=== PATIENT | female | born 1950 | race Caucasian/White ===

== ENCOUNTER 2019-05-31 12:25 | Observation (INO) ==
[2019-05-31] MEDS ORDERED: Ondansetron 4 MG/2 ML VIAL IVP ONE (12:38)
[2019-05-31] MEDS ORDERED: 0.9 % Sodium Chloride 1,000 ML IVC ONE (12:38)
[2019-05-31 13:08] LABS: Basophils # 0.1 K/mcL (0.0-0.2); Basophils % 0.6 %; Eosinophils # 0.3 K/mcL (0.0-0.6); Eosinophils % 3.3 %; Hematocrit 37.7 % (35.3-44.9); Hemoglobin 11.7 g/dL (11.5-15.4); Immature Granulocytes % 0.6 % (0-4); Lymphocytes # 2.5 K/mcL (0.6-4.6); Lymphocytes % 28.3 %; Mean Corpuscular Hemoglobin 28.5 pg (28.0-33.3); Mean Platelet Volume 11.6 fL (9.4-12.4); Monocytes # 0.6 K/mcL (0.0-1.3); Monocytes % 6.6 %; Neutrophils # 5.4 K/mcL (1.6-8.9); Platelet Count 249 K/mcL (140-400); Red Cell Distribution Width 18.2 % (11.5-14.5); Segmented Neutrophils % 60.6 %
[2019-05-31 13:26] LABS: Alanine Aminotransferase 18 Units/L (7-52); Albumin 3.1 g/dL (3.5-5.7); Albumin/Globulin Ratio 0.9 (1.1-2.2); Alkaline Phosphatase 91 Units/L (34-104); Amylase 16 Units/L (29-103); Aspartate Amino Transferase 31 Units/L (13-39); BUN/Creatinine Ratio 34 (6-26); Bilirubin,Direct 0.1 mg/dL (0.0-0.2); Bilirubin,Indirect 0.1 mg/dL (0.0-1.0); Bilirubin,Total 0.2 mg/dL (0.3-1.0); Blood Urea Nitrogen 34 mg/dL (8-23); Calcium 7.9 mg/dL (8.6-10.3); Carbon Dioxide 18 mEq/L (23-29); Chloride 109 mEq/L (98-107); Globulin 3.5 g/dL (2.4-3.5); Glucose 129 mg/dL (70-105); Lipase 38 Units/L (11-82); Osmolality,Calculated 295 (280-300); Sodium 138 mEq/L (136-145); Total Protein 6.6 g/dL (6.4-8.9); eGFR For African Americans > 60 (> 60); eGFR For Non-African Americans 55 (> 60)
[2019-05-31] MEDS: 0.9 % Sodium Chloride 1,000 ML IVC SCH ×4 (15:03→23:41)
[2019-05-31] MEDS ORDERED: Naloxone 0.4 MG/ML INJ IVP PRN (18:06)
[2019-05-31] MEDS ORDERED: Ondansetron 4 MG/2 ML VIAL IVP PRN (18:06)
[2019-05-31] MEDS ORDERED: *HR* Dextrose 50 % in Water (Vial) 50 ML VIAL IVP PRN (18:25)
[2019-05-31] MEDS ORDERED: Dextrose Gel 15 GM/37.5 ML TUBE PO PRN ×2 (18:25)
[2019-05-31] MEDS ORDERED: D5% in Water 1,000 ML IVC PRN (18:25)
[2019-05-31] MEDS ORDERED: Artificial Tears SOLN 15 ML BOTTLE BOTH EYES SCH (19:00)
[2019-05-31] MEDS: Bisacodyl 10 MG RECTAL SUPPOSITORY RC SCH (21:18)
[2019-05-31] MEDS: Sennosides/Docusate Sodium TABLET PO SCH (21:20)
[2019-05-31] MEDS: Insulin LISPRO 300 UNITS/3 ML VIAL SQ SCH (23:34)
[2019-06-01 05:36] LABS: Hemoglobin 10.7 g/dL (11.5-15.4); Mean Corpuscular HGB Conc 30.6 g/dL (31.6-35.5); Mean Corpuscular Hemoglobin 27.8 pg (28.0-33.3); Mean Corpuscular Volume 90.9 fL (83.0-100.0); Mean Platelet Volume 11.8 fL (9.4-12.4); Platelet Count 240 K/mcL (140-400); Red Blood Count 3.85 M/mcL (3.82-4.97); Red Cell Distribution Width 18.3 % (11.5-14.5); White Blood Count 8.3 K/mcL (4.3-11.1)
[2019-06-01 05:59] LABS: BUN/Creatinine Ratio 45 (6-26); Blood Urea Nitrogen 33 mg/dL (8-23); Carbon Dioxide 19 mEq/L (23-29); Chloride 113 mEq/L (98-107); Glucose 105 mg/dL (70-105); Osmolality,Calculated 298 (280-300); Potassium 4.6 mEq/L (3.5-5.1); Sodium 140 mEq/L (136-145); eGFR For African Americans > 60 (> 60); eGFR For Non-African Americans > 60 (> 60)
[2019-06-01] MEDS: Insulin LISPRO 300 UNITS/3 ML VIAL SQ SCH ×2 (06:44→18:08)
[2019-06-01] MEDS: Sennosides/Docusate Sodium TABLET PO SCH (07:40)
[2019-06-01] MEDS: 0.9 % Sodium Chloride 1,000 ML IVC SCH (07:40)
[2019-06-01] MEDS: Bisacodyl 10 MG RECTAL SUPPOSITORY RC SCH (07:40)
[2019-06-01] MEDS: Pantoprazole 40 MG VIAL IVP SCH (15:00)
[2019-06-01] MEDS: Artificial Tears SOLN 15 ML BOTTLE BOTH EYES SCH (18:08)
[2019-06-01] MEDS ORDERED: QUEtiapine Fumarate 100 MG TABLET PO SCH (19:00)
[2019-06-02] MEDS: Venlafaxine XR (24 HR) 37.5 MG CAP.ER.24H PO SCH ×2 (00:55→06:41)
[2019-06-02] MEDS: Sennosides/Docusate Sodium TABLET PO SCH ×2 (00:57→09:29)
[2019-06-02] MEDS: Artificial Tears SOLN 15 ML BOTTLE BOTH EYES SCH ×2 (01:06→09:29)
[2019-06-02] MEDS: Baclofen 10 MG TABLET PO SCH ×3 (01:08→14:14)
[2019-06-02] MEDS: Gabapentin 300 MG CAPSULE PO SCH ×3 (01:08→14:14)
[2019-06-02] MEDS: Insulin LISPRO 300 UNITS/3 ML VIAL SQ SCH ×2 (01:23→08:03)
[2019-06-02 06:05] VITALS: BP 125/79
[2019-06-02 06:13] LABS: Hemoglobin 10.8 g/dL (11.5-15.4); Mean Corpuscular HGB Conc 30.9 g/dL (31.6-35.5); Mean Corpuscular Hemoglobin 27.8 pg (28.0-33.3); Mean Corpuscular Volume 90.2 fL (83.0-100.0); Mean Platelet Volume 11.6 fL (9.4-12.4); Platelet Count 255 K/mcL (140-400); Red Blood Count 3.88 M/mcL (3.82-4.97); Red Cell Distribution Width 18.3 % (11.5-14.5); White Blood Count 7.8 K/mcL (4.3-11.1)
[2019-06-02 06:40] LABS: BUN/Creatinine Ratio 49 (6-26); Blood Urea Nitrogen 25 mg/dL (8-23); Calcium 7.4 mg/dL (8.6-10.3); Carbon Dioxide 18 mEq/L (23-29); Chloride 111 mEq/L (98-107); Glucose 120 mg/dL (70-105); Osmolality,Calculated 292 (280-300); Potassium 4.5 mEq/L (3.5-5.1); Sodium 138 mEq/L (136-145); eGFR For African Americans > 60 (> 60); eGFR For Non-African Americans > 60 (> 60)
[2019-06-02] MEDS ORDERED: QUEtiapine Fumarate 25 MG TABLET PO SCH (07:00)
[2019-06-02] MEDS: 0.9 % Sodium Chloride 1,000 ML IVC SCH (07:16)
[2019-06-02] MEDS: Pantoprazole 40 MG VIAL IVP SCH (09:23)
[2019-06-02] MEDS: Bisacodyl 10 MG RECTAL SUPPOSITORY RC SCH (09:29)
[2019-06-02] MEDS ORDERED: Insulin LISPRO 300 UNITS/3 ML VIAL SQ SCH ×2 (11:30→21:00)
== END 2019-06-02 15:05 ==
LOC: EMEROOPIK 12:25 → INPPIK 12:25
PROVIDERS: ADMIT Family Medicine; ATTEND Family Medicine

== ENCOUNTER 2019-06-10 18:29 | Inpatient (IN) ==
[2019-06-10] MEDS ORDERED: 0.9 % Sodium Chloride 500 ML IVC ONE (18:40)
[2019-06-10] MEDS ORDERED: 0.9 % Sodium Chloride 1,000 ML IVC SCH (18:45)
[2019-06-10 18:47] LABS: Bilirubin,Urine Negative (Negative); Blood,Urine Small (Negative); Clarity,Urine Turbid (Clear); Color,Urine Yellow (Yellow); Glucose,Urine (UA) Normal (Normal); Ketones,Urine Trace mg/dL (Negative); Leukocyte Esterase,Urine Moderate (Negative); Nitrite,Urine Negative (Negative); PH,Urine 5.5 pH Units (5.0-8.0); Protein,Urine 30 mg/dL (Neg-Trace); Urobilinogen,Urine Normal (Normal)
[2019-06-10 18:59] LABS: Basophils % 0.2 %; Eosinophils # 0.2 K/mcL (0.0-0.6); Eosinophils % 2.6 %; Hematocrit 35.6 % (35.3-44.9); Hemoglobin 11.3 g/dL (11.5-15.4); Immature Granulocytes % 0.5 % (0-4); Lymphocytes # 2.4 K/mcL (0.6-4.6); Lymphocytes % 29.1 %; Mean Corpuscular HGB Conc 31.7 g/dL (31.6-35.5); Mean Corpuscular Hemoglobin 28.5 pg (28.0-33.3); Mean Corpuscular Volume 89.7 fL (83.0-100.0); Monocytes # 0.4 K/mcL (0.0-1.3); Monocytes % 4.9 %; Neutrophils # 5.1 K/mcL (1.6-8.9); Platelet Count 234 K/mcL (140-400); Red Blood Count 3.97 M/mcL (3.82-4.97); Red Cell Distribution Width 18.2 % (11.5-14.5); Segmented Neutrophils % 62.7 %; White Blood Count 8.1 K/mcL (4.3-11.1)
[2019-06-10 19:02] LABS: Bacteria,Urine Moderate per hpf (None-Few); Mucus,Urine Few per lpf (Few); WBC,Urine TNTC per hpf (0-3)
[2019-06-10 19:17] LABS: Alanine Aminotransferase 19 Units/L (7-52); Albumin 2.9 g/dL (3.5-5.7); Albumin/Globulin Ratio 0.9 (1.1-2.2); Alkaline Phosphatase 88 Units/L (34-104); Aspartate Amino Transferase 27 Units/L (13-39); BUN/Creatinine Ratio 27 (6-26); Bilirubin,Direct 0.1 mg/dL (0.0-0.2); Bilirubin,Indirect 0.2 mg/dL (0.0-1.0); Bilirubin,Total 0.3 mg/dL (0.3-1.0); Blood Urea Nitrogen 25 mg/dL (8-23); Carbon Dioxide 22 mEq/L (23-29); Chloride 101 mEq/L (98-107); Globulin 3.2 g/dL (2.4-3.5); Glucose 112 mg/dL (70-105); Osmolality,Calculated 285 (280-300); Potassium 5.2 mEq/L (3.5-5.1); Sodium 135 mEq/L (136-145); Total Protein 6.1 g/dL (6.4-8.9); eGFR For African Americans > 60 (> 60); eGFR For Non-African Americans > 60 (> 60)
[2019-06-10] MEDS ORDERED: levoFLOXacin 750 MG/150 ML 750 MG/150 ML BAG IVPB ONE (19:19)
[2019-06-10] MEDS ORDERED: *HR* Dextrose 50 % in Water (Vial) 50 ML VIAL IVP PRN (20:40)
[2019-06-10] MEDS ORDERED: D5% in Water 1,000 ML IVC PRN (20:40)
[2019-06-10] MEDS ORDERED: Dextrose Gel 15 GM/37.5 ML TUBE PO PRN ×2 (20:40)
[2019-06-10] MEDS ORDERED: Mag Hydrox/Al Hydrox/Simeth 30 ML UDC PO PRN (20:40)
[2019-06-10] MEDS ORDERED: Naloxone 0.4 MG/ML INJ IVP PRN (20:40)
[2019-06-10] MEDS ORDERED: MOM Conc 10 ML UD.LIQ PO PRN (20:40)
[2019-06-10] MEDS ORDERED: Ondansetron ODT 4 MG TAB.RAPDIS SL PRN (20:40)
[2019-06-11] MEDS: 0.9 % Sodium Chloride 1,000 ML IVC SCH ×3 (03:00→23:43)
[2019-06-11 06:37] LABS: Basophils % 0.4 %; Eosinophils # 0.3 K/mcL (0.0-0.6); Eosinophils % 3.7 %; Hematocrit 32.9 % (35.3-44.9); Hemoglobin 10.2 g/dL (11.5-15.4); Lymphocytes # 2.3 K/mcL (0.6-4.6); Lymphocytes % 31.1 %; Mean Corpuscular Hemoglobin 28.2 pg (28.0-33.3); Mean Corpuscular Volume 90.9 fL (83.0-100.0); Mean Platelet Volume 12.4 fL (9.4-12.4); Monocytes # 0.5 K/mcL (0.0-1.3); Monocytes % 6.8 %; Neutrophils # 4.2 K/mcL (1.6-8.9); Platelet Count 205 K/mcL (140-400); Red Blood Count 3.62 M/mcL (3.82-4.97); Red Cell Distribution Width 18.2 % (11.5-14.5); White Blood Count 7.3 K/mcL (4.3-11.1)
[2019-06-11 06:59] LABS: BUN/Creatinine Ratio 35 (6-26); Blood Urea Nitrogen 27 mg/dL (8-23); Calcium 7.4 mg/dL (8.6-10.3); Carbon Dioxide 20 mEq/L (23-29); Chloride 105 mEq/L (98-107); Glucose 128 mg/dL (70-105); Osmolality,Calculated 287 (280-300); Potassium 4.9 mEq/L (3.5-5.1); Sodium 135 mEq/L (136-145); eGFR For African Americans > 60 (> 60); eGFR For Non-African Americans > 60 (> 60)
[2019-06-11] MEDS ORDERED: 0.9 % Sodium Chloride 1,000 ML IV ONE (07:30)
[2019-06-11] MEDS: Magnesium Oxide 400 MG TABLET PO SCH (08:19)
[2019-06-11] MEDS: Insulin LISPRO 300 UNITS/3 ML VIAL SQ SCH ×3 (08:20→16:46)
[2019-06-11] MEDS: *HR* HYDROcodone/Acet 5/325 mg TABLET PO PRN (11:06)
[2019-06-11] MEDS ORDERED: Gabapentin 300 MG CAPSULE PO SCH (15:00)
[2019-06-11] MEDS ORDERED: Baclofen 10 MG TABLET PO SCH (15:00)
[2019-06-11] MEDS: levoFLOXacin 750 MG/150 ML 750 MG/150 ML BAG IVPB SCH (16:46)
[2019-06-11] MEDS ORDERED: QUEtiapine Fumarate 100 MG TABLET PO SCH (19:00)
[2019-06-11] MEDS ORDERED: Psyllium 1 PACKET POWD.PACK PO SCH (19:00)
[2019-06-11] MEDS ORDERED: VISINE TEARS DROPS 15 ML 1 DROP BOTTLE BOTH EYES SCH (19:00)
[2019-06-11] MEDS: QUEtiapine Fumarate 100 MG TABLET PO SCH (21:38)
[2019-06-11] MEDS: Gabapentin 300 MG CAPSULE PO SCH (21:38)
[2019-06-11] MEDS: Baclofen 10 MG TABLET PO SCH (21:39)
[2019-06-11] MEDS: Psyllium 1 PACKET POWD.PACK PO SCH (21:39)
[2019-06-11] MEDS: VISINE TEARS DROPS 15 ML 1 DROP BOTTLE BOTH EYES SCH (21:39)
[2019-06-12] MEDS: QUEtiapine Fumarate 100 MG TABLET PO SCH ×2 (08:09→20:21)
[2019-06-12] MEDS: Gabapentin 300 MG CAPSULE PO SCH ×3 (08:10→20:22)
[2019-06-12] MEDS: Baclofen 10 MG TABLET PO SCH ×3 (08:10→20:22)
[2019-06-12] MEDS: Magnesium Oxide 400 MG TABLET PO SCH (08:10)
[2019-06-12] MEDS: Psyllium 1 PACKET POWD.PACK PO SCH ×2 (08:11→20:22)
[2019-06-12] MEDS: VISINE TEARS DROPS 15 ML 1 DROP BOTTLE BOTH EYES SCH ×2 (08:19→20:28)
[2019-06-12] MEDS: Insulin LISPRO 300 UNITS/3 ML VIAL SQ SCH ×3 (08:20→16:10)
[2019-06-12 08:49] LABS: Basophils % 0.4 %; Eosinophils # 0.3 K/mcL (0.0-0.6); Eosinophils % 3.4 %; Hematocrit 31.5 % (35.3-44.9); Hemoglobin 10.1 g/dL (11.5-15.4); Immature Granulocytes % 1.1 % (0-4); Lymphocytes # 2.1 K/mcL (0.6-4.6); Lymphocytes % 28.9 %; Mean Corpuscular HGB Conc 32.1 g/dL (31.6-35.5); Mean Corpuscular Hemoglobin 28.8 pg (28.0-33.3); Mean Corpuscular Volume 89.7 fL (83.0-100.0); Mean Platelet Volume 11.9 fL (9.4-12.4); Monocytes # 0.5 K/mcL (0.0-1.3); Monocytes % 7.3 %; Neutrophils # 4.3 K/mcL (1.6-8.9); Platelet Count 214 K/mcL (140-400); Red Blood Count 3.51 M/mcL (3.82-4.97); Segmented Neutrophils % 58.9 %; White Blood Count 7.4 K/mcL (4.3-11.1)
[2019-06-12 09:04] LABS: BUN/Creatinine Ratio 32 (6-26); Blood Urea Nitrogen 20 mg/dL (8-23); Calcium 7.3 mg/dL (8.6-10.3); Carbon Dioxide 24 mEq/L (23-29); Chloride 106 mEq/L (98-107); Glucose 121 mg/dL (70-105); Osmolality,Calculated 288 (280-300); Potassium 4.9 mEq/L (3.5-5.1); Sodium 137 mEq/L (136-145); eGFR For African Americans > 60 (> 60); eGFR For Non-African Americans > 60 (> 60)
[2019-06-12] MEDS ORDERED: *HR* Enoxaparin 40 MG/0.4 ML SYRINGE SQ SCH (10:15)
[2019-06-12] MEDS: *HR* Enoxaparin 40 MG/0.4 ML SYRINGE SQ SCH (12:59)
[2019-06-12] MEDS: ceFAZolin 2,000 MG in 0.9 % Sodium Chloride 100 ML IVPB SCH ×2 (13:00→20:22)
[2019-06-12] MEDS: levoFLOXacin 750 MG/150 ML 750 MG/150 ML BAG IVPB SCH (17:04)
[2019-06-13] MEDS: ceFAZolin 2,000 MG in 0.9 % Sodium Chloride 100 ML IVPB SCH (05:11)
[2019-06-13] MEDS: *HR* Enoxaparin 40 MG/0.4 ML SYRINGE SQ SCH (05:11)
[2019-06-13] MEDS: QUEtiapine Fumarate 100 MG TABLET PO SCH ×2 (08:32→20:38)
[2019-06-13] MEDS: Psyllium 1 PACKET POWD.PACK PO SCH ×2 (08:32→20:38)
[2019-06-13] MEDS: Baclofen 10 MG TABLET PO SCH ×3 (08:32→20:38)
[2019-06-13] MEDS: Magnesium Oxide 400 MG TABLET PO SCH (08:32)
[2019-06-13] MEDS: Gabapentin 300 MG CAPSULE PO SCH ×3 (08:33→20:38)
[2019-06-13] MEDS: VISINE TEARS DROPS 15 ML 1 DROP BOTTLE BOTH EYES SCH ×2 (08:33→20:38)
[2019-06-13] MEDS: Insulin LISPRO 300 UNITS/3 ML VIAL SQ SCH ×3 (08:33→17:04)
[2019-06-13] MEDS: Ertapenem 1,000 MG in 0.9 % Sodium Chloride Mini Bag 100 ML IVPB SCH (13:54)
[2019-06-13] MEDS: *HR* Metformin 500 MG TABLET PO SCH (17:12)
[2019-06-14] MEDS: *HR* Enoxaparin 40 MG/0.4 ML SYRINGE SQ SCH (06:11)
[2019-06-14] MEDS: Gabapentin 300 MG CAPSULE PO SCH ×3 (08:52→19:55)
[2019-06-14] MEDS: Baclofen 10 MG TABLET PO SCH ×3 (08:52→19:55)
[2019-06-14] MEDS: Magnesium Oxide 400 MG TABLET PO SCH (08:52)
[2019-06-14] MEDS: QUEtiapine Fumarate 100 MG TABLET PO SCH ×2 (08:52→19:56)
[2019-06-14] MEDS: Psyllium 1 PACKET POWD.PACK PO SCH ×2 (08:52→19:55)
[2019-06-14] MEDS: Insulin LISPRO 300 UNITS/3 ML VIAL SQ SCH ×3 (08:56→16:23)
[2019-06-14] MEDS: *HR* Metformin 500 MG TABLET PO SCH ×2 (08:57→16:34)
[2019-06-14] MEDS: VISINE TEARS DROPS 15 ML 1 DROP BOTTLE BOTH EYES SCH ×2 (08:58→20:04)
[2019-06-14 09:24] LABS: Basophils # 0.1 K/mcL (0.0-0.2); Basophils % 0.7 %; Eosinophils # 0.3 K/mcL (0.0-0.6); Eosinophils % 3.8 %; Hematocrit 33.2 % (35.3-44.9); Hemoglobin 10.5 g/dL (11.5-15.4); Immature Granulocytes % 1.1 % (0-4); Lymphocytes % 27.5 %; Mean Corpuscular HGB Conc 31.6 g/dL (31.6-35.5); Mean Corpuscular Hemoglobin 28.2 pg (28.0-33.3); Mean Corpuscular Volume 89.2 fL (83.0-100.0); Mean Platelet Volume 11.7 fL (9.4-12.4); Monocytes # 0.4 K/mcL (0.0-1.3); Monocytes % 5.8 %; Neutrophils # 4.5 K/mcL (1.6-8.9); Platelet Count 195 K/mcL (140-400); Red Blood Count 3.72 M/mcL (3.82-4.97); Red Cell Distribution Width 18.2 % (11.5-14.5); Segmented Neutrophils % 61.1 %; White Blood Count 7.3 K/mcL (4.3-11.1)
[2019-06-14 09:38] LABS: BUN/Creatinine Ratio 25 (6-26); Blood Urea Nitrogen 13 mg/dL (8-23); Calcium 7.2 mg/dL (8.6-10.3); Carbon Dioxide 21 mEq/L (23-29); Chloride 106 mEq/L (98-107); Glucose 223 mg/dL (70-105); Osmolality,Calculated 289 (280-300); Potassium 4.4 mEq/L (3.5-5.1); Sodium 136 mEq/L (136-145); eGFR For African Americans > 60 (> 60); eGFR For Non-African Americans > 60 (> 60)
[2019-06-14] MEDS: Ertapenem 1,000 MG in 0.9 % Sodium Chloride Mini Bag 100 ML IVPB SCH (11:42)
[2019-06-14] MEDS ORDERED: Lidocaine 1% 20 ML MDV INFILT ONE (17:04)
[2019-06-15] MEDS: *HR* Enoxaparin 40 MG/0.4 ML SYRINGE SQ SCH (06:06)
[2019-06-15] MEDS: Insulin LISPRO 300 UNITS/3 ML VIAL SQ SCH ×2 (07:33→11:40)
[2019-06-15] MEDS: Magnesium Oxide 400 MG TABLET PO SCH (09:16)
[2019-06-15] MEDS: *HR* HYDROcodone/Acet 5/325 mg TABLET PO PRN (09:16)
[2019-06-15] MEDS: QUEtiapine Fumarate 100 MG TABLET PO SCH (09:16)
[2019-06-15] MEDS: Gabapentin 300 MG CAPSULE PO SCH (09:16)
[2019-06-15] MEDS: VISINE TEARS DROPS 15 ML 1 DROP BOTTLE BOTH EYES SCH (09:16)
[2019-06-15] MEDS: Baclofen 10 MG TABLET PO SCH (09:16)
[2019-06-15] MEDS: Psyllium 1 PACKET POWD.PACK PO SCH (09:17)
[2019-06-15] MEDS: *HR* Metformin 500 MG TABLET PO SCH (09:19)
[2019-06-15 10:33] VITALS: BP 122/85
[2019-06-15] MEDS: Ertapenem 1,000 MG in 0.9 % Sodium Chloride Mini Bag 100 ML IVPB SCH (11:39)
== END 2019-06-15 01:44 | DRG 720 ==
LOC: INPPIK 18:29 → EMEROOPIK 18:29 → INPPIK 20:32
PROVIDERS: ADMIT Family Medicine; ATTEND Family Medicine